=== PATIENT | female | born 1965 | race Caucasian/White ===

== ENCOUNTER 2016-10-25 10:53 | Emergency (ER) | payer MEDICAID ==
[~2016-10-25] VITALS: Ht 165.1 cm; Wt 70.5 kg
[2016-10-25] MEDS ORDERED: MEDDOSEPAK PO (13:07)
[2016-10-25 13:17] VITALS: BP 112/76
== END 2016-10-25 13:17 | disposition home or self-care (01) | DRG 607 ==
LOC: ED 10:53
DX: L50.9 Urticaria, unspecified (principal)